=== PATIENT | male | born 1980 | race African-American/Black ===

== ENCOUNTER 2017-11-01 18:38 | Emergency (ER) | payer SELFPAY | END 2017-11-01 19:26 | disposition home or self-care (01) | LOC: ERS 18:38 | DX: M54.5 Low back pain (principal); F17.200 Nicotine dependence, unspecified, uncomplicated | CPT/HCPCS: 99283 ==

== ENCOUNTER 2017-11-10 08:47 | Emergency (ER) | payer SELFPAY ==
[2017-11-10] MEDS ORDERED: Ibuprofen 800 MG TAB ONE (09:56)
--- NOTE | 2017-11-10 10:22 | RAD ---
RIGHT KNEE 4 VIEWS: HISTORY: Fall. Right knee injury. FINDINGS: Joint spaces are preserved. Mild osteophytosis. Fluid distention in the suprapatellar bursa on the lateral view. No acute fracture, dislocation, or aggessive osseous erosions. IMPRESSION: Fluid distention suggests the possibility of internal derangement. No acute osseous abnormalities ar e demonstrated. POS: [facility]
== END 2017-11-10 10:05 | disposition home or self-care (01) ==
LOC: ERS 08:47
DX: S89.91XA Unspecified injury of right lower leg, initial encounter (principal); F17.290 Nicotine dependence, other tobacco product, uncomplicated; W17.2XXA Fall into hole, initial encounter

== ENCOUNTER 2018-06-15 17:00 | Emergency (ER) | payer SELFPAY ==
[2018-06-15] MEDS ORDERED: hydrOXYzine 25 MG TAB ONE (17:25)
[2018-06-15] MEDS ORDERED: Dexamethasone 10 MG/ML VIAL ONE (17:25)
[2018-06-15] MEDS ORDERED: Fluorescein Opthalmic Strip ONE (17:27)
[2018-06-15] MEDS ORDERED: Proparacaine 0.5% Opth 15 ML BOT ONE (17:27)
== END 2018-06-15 17:40 | disposition home or self-care (01) ==
LOC: ERS 17:00
DX: H10.13 Acute atopic conjunctivitis, bilateral (principal); F17.200 Nicotine dependence, unspecified, uncomplicated
CPT/HCPCS: 99283; J1100

== ENCOUNTER 2018-07-10 09:42 | Emergency (ER) | payer SELFPAY ==
[2018-07-10] MEDS ORDERED: Ketorolac Tromethamine 30 MG/ML VIAL ONE (10:57)
== END 2018-07-10 11:15 | disposition home or self-care (01) ==
LOC: ERS 09:42
DX: S29.012A Strain of muscle and tendon of back wall of thorax, initial encounter (principal); F17.200 Nicotine dependence, unspecified, uncomplicated; V43.62XA Car passenger injured in collision with other type car in traffic accident, initial encounter
CPT/HCPCS: 96372; J1885

== ENCOUNTER 2021-12-06 21:13 | Emergency (ER) | payer OTHER, SELFPAY ==
[2021-12-06 21:49] LABS: #Basophils 0.1 thou/uL (0.0-0.2); #Eosinphils 0.2 thou/uL (0.0-0.7); #Lymphocytes 2.9 thou/uL (1.20-3.40); #Monocytes 0.5 thou/uL (0.11-0.59); #Neutrophils 2.6 thou/uL (1.40-6.50); %Basophils 1.2 % (0.0-1.0); %Eosinophils 3.7 % (0.0-10.0); %Lymphocytes 45.7 % (21.0-51.0); %Monocytes 7.9 % (0.0-10.0); %Neutrophils 41.5 % (42.0-75.0); Hemoglobin 14.6 g/dL (14.0-18.0); Mean Corpuscular HGB CONC 33.3 g/dL (32.0-36.0); Mean Corpuscular Hemoglobin 34.6 pg (27.0-31.0); Mean Platelet Volume 6.4 fL (7.4-10.4); Platelet Count 191 thou/uL (130-400); RBC Distribution Width 13.7 % (11.5-14.5); Red Blood Cell (RBC) Count 4.21 mill/uL (4.70-6.10); White Blood Cell (WBC) Count 6.3 thou/uL (4.8-10.8)
[2021-12-06] MEDS ORDERED: Aspirin Chewable 81 MG TAB ONE (21:58)
[2021-12-06 22:13] LABS: ALT (SGPT) 11 U/L (8-55); AST (SGOT) 21 U/L (5-34); Alkaline Phosphatase 74 U/L (40-110); Anion Gap 12 mmol/L (10-20); BUN (Urea Nitrogen) 21 mg/dL (8.9-20.6); Bilirubin, Total 0.8 mg/dL (0.2-1.2); Calc. Creatinine Clearance 0 mL/min (70-130); Calcium 9.1 mg/dL (7.8-10.44); Carbon Dioxide 25 mmol/L (22-29); Chloride 108 mmol/L (98-107); Estimated GFR 87; Globulin 3.5 g/dL (2.4-3.5); Glucose 93 mg/dL (70-105); Lipase 22 U/L (8-78); Potassium 3.8 mmol/L (3.5-5.1); Protein, Total 7.5 g/dL (6.0-8.3); Sodium 141 mmol/L (136-145)
== END 2021-12-07 01:41 | disposition left against medical advice (07) ==
LOC: ERS 21:13
DX: Z53.21 Procedure and treatment not carried out due to patient leaving prior to being seen by health care provider (principal)
CPT/HCPCS: 36415; 71045; 80053; 83690; 84484; 85025; 93005

== ENCOUNTER 2022-02-07 04:10 | Observation (INO) | payer SELFPAY ==
[2022-02-07] MEDS ORDERED: CEFAZOLIN 2 GM VIAL ONE (04:19)
[2022-02-07] MEDS ORDERED: hydrALAZINE 20 MG/ML VIAL SLOW IVP PRN (04:44)
[2022-02-07] MEDS ORDERED: Dextrose 5% in Water 1,000 ML IV PRN (04:44)
[2022-02-07] MEDS ORDERED: Dextrose 50% Abboject 50 ML SYRINGE SLOW IVP PRN (04:44)
[2022-02-07] MEDS ORDERED: Ondansetron PF 4 MG/2 ML Vial IVP PRN (04:44)
[2022-02-07] MEDS ORDERED: Sodium Chloride 0.9% 1,000 ML IV SCH (04:45)
[2022-02-07 04:46] LABS: Hemoglobin 12.5 g/dL (14.0-18.0); Mean Corpuscular HGB CONC 34.7 g/dL (32.0-36.0); Mean Corpuscular Hemoglobin 36.3 pg (27.0-31.0); Mean Platelet Volume 6.1 fL (7.4-10.4); Platelet Count 165 thou/uL (130-400); RBC Distribution Width 13.9 % (11.5-14.5); Red Blood Cell (RBC) Count 3.43 mill/uL (4.70-6.10); White Blood Cell (WBC) Count 6.5 thou/uL (4.8-10.8)
[2022-02-07] MEDS ORDERED: Acetaminophen 500 MG TAB PO PRN (04:46)
[2022-02-07] MEDS ORDERED: traMADol HCl 50 MG TAB PO PRN ×2 (04:46)
[2022-02-07 04:56] LABS: INR-International Normal Ratio 1.2; Prothrombin Time 15.2 sec (12.0-14.7)
[2022-02-07 04:57] LABS: #Basophils 0.1 thou/uL (0.0-0.2); #Eosinphils 0.2 thou/uL (0.0-0.7); #Lymphocytes 2.8 thou/uL (1.20-3.40); #Monocytes 0.5 thou/uL (0.11-0.59); %Basophils 0.9 % (0.0-1.0); %Eosinophils 2.8 % (0.0-10.0); %Lymphocytes 42.5 % (21.0-51.0); %Monocytes 7.7 % (0.0-10.0); %Neutrophils 46.1 % (42.0-75.0); MDiff Complete? YES; Macrocytosis MODERATE=16-30 cells (100X) (0-5/hpf); Ovalocytes SLIGHT = 2-5 cells (100X) (0-1/hpf); PTT 29.4 sec (22.9-36.1); Platelet Morphology Comment Appears Adequate
[2022-02-07 05:01] LABS: ALT (SGPT) 7 U/L (8-55); AST (SGOT) 17 U/L (5-34); Albumin 3.2 g/dL (3.5-5.0); Alcohol Less than 10 mg/dL (Less than 10); Alkaline Phosphatase 56 U/L (40-110); Anion Gap 18 mmol/L (10-20); BUN (Urea Nitrogen) 11 mg/dL (8.9-20.6); Bilirubin, Total 1.3 mg/dL (0.2-1.2); Calc. Creatinine Clearance 0 mL/min (70-130); Calcium 8.3 mg/dL (7.8-10.44); Carbon Dioxide 18 mmol/L (22-29); Chloride 106 mmol/L (98-107); Estimated GFR 76; Globulin 2.6 g/dL (2.4-3.5); Glucose 128 mg/dL (70-105); Magnesium 1.7 mg/dL (1.6-2.6); Phosphorus 3.1 mg/dL (2.3-4.7); Potassium 3.2 mmol/L (3.5-5.1); Protein, Total 5.8 g/dL (6.0-8.3); Sodium 139 mmol/L (136-145)
[2022-02-07] MEDS ORDERED: Magnesium 2 GM/50 ML(in water) 2 GM in Premix Bag 1 BAG IVPB SCH (06:00)
[2022-02-07] MEDS ORDERED: Potassium Phosphate 15 MMOL in Sodium Chloride 0.9% 250 ML 250 ML IVPB SCH (06:00)
[2022-02-07 06:46] VITALS: BMI 35.5
[2022-02-07 07:14] LABS: Bacteria/HPF None Seen HPF (None Seen); Bilirubin Negative (Negative); Blood, Urine Negative (Negative); Clarity Clear (Clear); Glucose, Urine (Dipstick) Normal (Negative); Ketone, Urine Negative (Negative); Leukocyte Negative Leu/uL (Negative); Nitrite Negative (Negative); Protein, Urine (Dipstick) Negative (Neg-Trace); RBC/HPF 0-3 HPF (0-3); Specific Gravity, Urine 1.038 (1.002-1.036); Squamous Epithelial 0-3 HPF (0-3); Urobilinogen Normal mg/dL (Less than 2); WBC/HPF 0-3 HPF (0-3)
[2022-02-07 07:19] LABS: Urine Culture Reflex No No
[2022-02-07 07:20] LABS: Amphetamine Detected (NotDetected); Barbiturates Screen Not Detected (NotDetected); Benzodiazepine Screen Not Detected (NotDetected); Cocaine Metabolite Screen Not Detected (NotDetected); Methadone Not Detected (NotDetected); Methamphetamine Detected (NotDetected); Opiate Screen Not Detected (NotDetected); Oxycodone Screen Not Detected (NotDetected); Phencyclidine (PCP) Not Detected (NotDetected); THC/Cannabinoid Screen Not Detected (NotDetected); Tricyclic Screen Not Detected (NotDetected)
[2022-02-07 07:31] LABS: SARS-CoV-2 NAA Rapid Test Not Detected (NotDetected)
[2022-02-07 08:15] LABS: Lactic Acid 1.4 mmol/L (0.5-2.2)
[2022-02-07] MEDS ORDERED: Famotidine 20 MG TAB PO SCH (09:00)
[2022-02-07] MEDS ORDERED: Iopamidol-370 76% 500 ML 1 ML ONE (12:48)
[2022-02-07 13:27] VITALS: BP 114/68; TEMP 98.1
== END 2022-02-07 15:15 | disposition home or self-care (01) ==
LOC: ERS 04:10 → SURG B 04:44
PROVIDERS: ADMIT Surgery; ATTEND Surgery
DX: S31.111A Laceration without foreign body of abdominal wall, left upper quadrant without penetration into peritoneal cavity, initial encounter (principal); S61.411A Laceration without foreign body of right hand, initial encounter; R74.02 Elevation of levels of lactic acid dehydrogenase [LDH]; S40.812A Abrasion of left upper arm, initial encounter; F17.210 Nicotine dependence, cigarettes, uncomplicated; K40.90 Unilateral inguinal hernia, without obstruction or gangrene, not specified as recurrent; F15.10 Other stimulant abuse, uncomplicated; Z20.822 Contact with and (suspected) exposure to COVID-19; W26.0XXA Contact with knife, initial encounter
CPT/HCPCS: 36415; 71045; 74177; 80053; 80306; 80307; 81001; 82550; 83605; 83735; 84100; 84484; 85025; 85610; 85730; 86850; 86900; 86901; 94640; 96375; G0378; G0390; J0690; J3475; J7050; J7620; U0002